=== PATIENT | male | born 1975 | race Caucasian/White ===

== ENCOUNTER 2018-01-09 19:03 | Emergency (ER) | payer MEDICAID ==
[~2018-01-09] VITALS: Ht 185.4 cm; Wt 103.1 kg
[2018-01-09 19:09] VITALS: BP 138/90
[2018-01-09] MEDS ORDERED: IBUPROFEN 200 MG TABLET PO ONE (19:30)
[2018-01-09] MEDS ORDERED: IBUPROFEN 200 MG TABLET ONE (19:31)
== END 2018-01-09 19:35 | disposition home or self-care (01) ==
LOC: ED 19:20
DX: R05 Cough (principal); Z76.0 Encounter for issue of repeat prescription; F17.210 Nicotine dependence, cigarettes, uncomplicated
CPT/HCPCS: 99283